=== PATIENT | female | born 1950 | race Caucasian/White ===

== ENCOUNTER → 2017-10-25 | Outpatient (CLI) | payer OTHER ==
[~2017-10-25] MED LIST: OMNIPAQUE 350 MG/ML, 100ML BOTTLE ONE
[2017-10-25 12:15] LABS: BASOPHILS # (AUTO) 0.01 x10^3/uL (0-0.1); BASOPHILS % (AUTO) 0 % (0-1); EOSINOPHILS # (AUTO) 0.09 x10^3/uL (0-0.4); EOSINOPHILS % (AUTO) 1 % (1-7); LYMPHOCYTES # (AUTO) 1.72 x10^3/uL (1-3.4); LYMPHOCYTES % (AUTO) 19 % (22-44); MD NO; MEAN CORPUSCULAR HEMOGLOBIN 31.2 pg (27.0-34.8); MEAN CORPUSCULAR HGB CONC 33.8 g/dL (32.4-35.8); MEAN CORPUSCULAR VOLUME 92.4 fL (80-100); MEAN PLATELET VOLUME 8.1 fL (7.4-10.4); MONOCYTES # (AUTO) 0.09 x10^3/uL (0.2-0.8); MONOCYTES % (AUTO) 1 % (2-9); NEUTROPHILS # (AUTO) 7.11 x10^3/uL (1.8-6.8); NEUTROPHILS % (AUTO) 79 % (42-75); PLATELET COUNT 275 x10^3/uL (130-400); RED BLOOD COUNT 4.37 x10^6/uL (3.82-5.3); RED CELL DISTRIBUTION WIDTH 12.7 % (9.6-15.2)
[2017-10-25 12:35] LABS: ALANINE AMINOTRANSFERASE 20 U/L (12-78); ALBUMIN 3.8 g/dL (3.4-5.0); ALKALINE PHOSPHATASE 53 U/L (45-117); ANION GAP 7 mmol/L (5-15); BILIRUBIN,TOTAL 0.5 mg/dL (0.2-1.0); CHLORIDE 101 mmol/L (98-107); CREATININE 0.53 mg/dL (0.55-1.02); TOTAL PROTEIN 7.9 g/dL (6.4-8.2)
== END ==
LOC: RAD 11:49
PROVIDERS: ATTEND Internal Medicine Gastroenterology
DX: C15.4 Malignant neoplasm of middle third of esophagus (principal); J43.2 Centrilobular emphysema; R13.19 Other dysphagia; K44.9 Diaphragmatic hernia without obstruction or gangrene; K22.2 Esophageal obstruction
CPT/HCPCS: 36415; 71260; 74177; 80053; 85025; Q9967

== ENCOUNTER → 2017-11-17 | Outpatient (CLI) | payer OTHER | END | disposition home or self-care (01) | LOC: ROC 10:10 | PROVIDERS: ATTEND Radiology Radiation Oncology | DX: C15.4 Malignant neoplasm of middle third of esophagus (principal); E78.00 Pure hypercholesterolemia, unspecified; I10 Essential (primary) hypertension; J44.9 Chronic obstructive pulmonary disease, unspecified; Z87.891 Personal history of nicotine dependence | CPT/HCPCS: 99214; G0463 ==

== ENCOUNTER → 2017-11-27 | Outpatient (CLI) | payer OTHER ==
[~2017-11-27] MED LIST changes: +ALBU18HF INH; +LOSA50TA6 PO; -OMNIPAQUE 350 MG/ML, 100ML BOTTLE ONE; +UMEC1DIS INH
== END | disposition home or self-care (01) ==
LOC: PETCFH 08:27
PROVIDERS: ATTEND Internal Medicine Hematology & Oncology
DX: C15.4 Malignant neoplasm of middle third of esophagus (principal)
CPT/HCPCS: 78815; A9552

== ENCOUNTER 2017-11-30 11:10 | Day surgery (SDC) | payer OTHER ==
[~2017-11-30] VITALS: Ht 162.6 cm; Wt 46.8 kg
[2017-11-30] MEDS ORDERED: LACTATED RINGERS 1,000 ML IV SCH ×2 (11:44→13:24)
[2017-11-30] MEDS ORDERED: PROPOFOL 10 MG/ML, 20ML ONE ×2 (11:55→12:49)
[2017-11-30] MEDS ORDERED: CHLORHEXIDINE 15 ML BOTTLE ONE (12:28)
[2017-11-30 12:35] LABS: ALBUMIN 3.8 g/dL (3.4-5.0); ANION GAP 9 mmol/L (5-15); CALCIUM 9.3 mg/dL (8.5-10.1); CHLORIDE 100 mmol/L (98-107)
[2017-11-30 12:38] LABS: ALANINE AMINOTRANSFERASE 15 U/L (12-78); ALKALINE PHOSPHATASE 41 U/L (45-117); BILIRUBIN,TOTAL 0.5 mg/dL (0.2-1.0); TOTAL PROTEIN 7.7 g/dL (6.4-8.2)
== END 2017-11-30 14:15 ==
LOC: OUT 11:10
PROVIDERS: ATTEND Internal Medicine Gastroenterology
DX: C15.9 Malignant neoplasm of esophagus, unspecified (principal); J44.9 Chronic obstructive pulmonary disease, unspecified; E03.9 Hypothyroidism, unspecified; I10 Essential (primary) hypertension; Z88.1 Allergy status to other antibiotic agents
CPT/HCPCS: 36415; 43202; 43231; 80053; 88305; 93005; J2704; J7120

== ENCOUNTER → 2018-02-07 | Outpatient (CLI) | payer OTHER ==
[~2018-02-07] MED LIST changes: +ACET650S21 JT; +DOCU50LI24 JT
== END | disposition home or self-care (01) ==
LOC: ROC 10:29
PROVIDERS: ATTEND Radiology Radiation Oncology
DX: C15.4 Malignant neoplasm of middle third of esophagus (principal)
CPT/HCPCS: 99212; G0463

== ENCOUNTER 2018-03-22 10:51 | Day surgery (SDC) | payer OTHER ==
[~2018-03-22] VITALS: Ht 162.6 cm; Wt 47.0 kg
[2018-03-22] MEDS ORDERED: LACTATED RINGERS 1,000 ML IV SCH (12:01)
[2018-03-22] MEDS ORDERED: PROPOFOL 10 MG/ML, 20ML ONE (12:23)
[2018-03-22 12:25] VITALS: BP 126/79
[2018-03-22] MEDS ORDERED: DIAZEPAM 5 MG/ML, 2ML IVPush PRN (12:30)
[2018-03-22] MEDS ORDERED: MORPHINE SULFATE 4 MG/ML, 1ML IVPush PRN (12:30)
[2018-03-22] MEDS ORDERED: LABETALOL 5MG/ML, 20ML IV PRN (12:30)
[2018-03-22] MEDS ORDERED: FENTANYL PF 100 MCG/2ML IV PRN (12:30)
[2018-03-22] MEDS ORDERED: PROMETHAZINE 25 MG/ML, 1ML IV PRN (12:30)
[2018-03-22] MEDS ORDERED: SCOPOLAMINE PATCH, 1.5MG PATCH.TD72 TD PRN (12:30)
[2018-03-22] MEDS ORDERED: hydrALAzine 20 MG/ML, 1ML IV PRN (12:30)
[2018-03-22] MEDS ORDERED: MIDAZOLAM 1 MG/ML, 2ML IV PRN (12:30)
[2018-03-22] MEDS ORDERED: MEPERIDINE/PF 25MG/0.5ML IVPush PRN (12:30)
[2018-03-22] MEDS ORDERED: KETOROLAC 30 MG/1 ML IV PRN (12:30)
[2018-03-22] MEDS ORDERED: EPHEDRINE 50 MG/ML, 1ML IM PRN (12:30)
[2018-03-22] MEDS ORDERED: ACETAMINOPHEN 325 MG TABLET PO PRN (12:30)
[2018-03-22] MEDS ORDERED: ALBUTEROL/IPRATROPIUM 2.5MG/0.5MG, 3 ML NPPB PRN (12:30)
[2018-03-22] MEDS ORDERED: OXYcodone 5 MG/5 ML ORAL.SOL UDC PO PRN (12:30)
[2018-03-22] MEDS ORDERED: HYDROmorphone 1 MG/ML, 1ML IV PRN (12:30)
[2018-03-22] MEDS ORDERED: ONDANSETRON ODT 8 MG PO PRN (12:30)
== END 2018-03-22 14:05 ==
LOC: OUT 10:51
PROVIDERS: ATTEND Internal Medicine Gastroenterology
DX: C15.4 Malignant neoplasm of middle third of esophagus (principal); K22.2 Esophageal obstruction; Z88.1 Allergy status to other antibiotic agents; J44.9 Chronic obstructive pulmonary disease, unspecified; E78.00 Pure hypercholesterolemia, unspecified; I10 Essential (primary) hypertension; Z87.39 Personal history of other diseases of the musculoskeletal system and connective tissue; Z98.890 Other specified postprocedural states
CPT/HCPCS: 43237; 43239; 43249; 88305; 88312; 93005; C1725; J2704

== ENCOUNTER 2018-04-04 09:52 | Day surgery (SDC) | payer OTHER ==
[~2018-04-04] VITALS: Ht 162.6 cm; Wt 47.3 kg
[2018-04-04] MEDS ORDERED: MORPHINE PO (10:26)
[2018-04-04 10:31] VITALS: BP 133/71
[2018-04-04] MEDS ORDERED: LACTATED RINGERS 1,000 ML IV SCH (11:00)
[2018-04-04] MEDS ORDERED: MIDAZOLAM 1 MG/ML, 2ML ONE (12:01)
[2018-04-04] MEDS ORDERED: FENTANYL PF 100 MCG/2ML ONE (12:01)
[2018-04-04] MEDS ORDERED: ONDANSETRON 2MG/ML, 2ML ONE ×2 (12:05→14:11)
[2018-04-04] MEDS ORDERED: PROPOFOL 10 MG/ML, 20ML ONE (12:05)
[2018-04-04] MEDS ORDERED: DEXAMETHASONE 4 MG/ML, 1ML ONE (12:05)
[2018-04-04] MEDS ORDERED: SUCCINYLCHOLINE 20 MG/ML, 10ML ONE (12:05)
[2018-04-04] MEDS ORDERED: OMNIPAQUE 350 MG/ML, 50 ML BOTTLE ONE (12:40)
[2018-04-04] MEDS ORDERED: LABETALOL 5MG/ML, 20ML ONE (12:53)
[2018-04-04] MEDS ORDERED: hydrALAzine 20 MG/ML, 1ML IV PRN (13:00)
[2018-04-04] MEDS ORDERED: LABETALOL 5MG/ML, 20ML IV PRN (13:00)
[2018-04-04] MEDS ORDERED: ACETAMINOPHEN 325 MG TABLET PO PRN (13:00)
[2018-04-04] MEDS ORDERED: ONDANSETRON ODT 8 MG PO PRN (13:00)
[2018-04-04] MEDS ORDERED: EPHEDRINE 50 MG/ML, 1ML IVPush PRN (13:00)
[2018-04-04] MEDS ORDERED: MORPHINE SULFATE 4 MG/ML, 1ML IVPush PRN (13:00)
[2018-04-04] MEDS ORDERED: HYDROcodone/APAP 7.5-325MG/15ML UDC PO PRN (13:00)
[2018-04-04] MEDS ORDERED: MIDAZOLAM 1 MG/ML, 2ML IV PRN (13:00)
[2018-04-04] MEDS ORDERED: KETOROLAC 30 MG/1 ML IV PRN (13:00)
[2018-04-04] MEDS ORDERED: PROMETHAZINE 25 MG/ML, 1ML IV PRN (13:00)
[2018-04-04] MEDS ORDERED: ALBUTEROL/IPRATROPIUM 2.5MG/0.5MG, 3 ML NPPB PRN (13:00)
[2018-04-04] MEDS ORDERED: OXYcodone 5 MG/5 ML ORAL.SOL UDC PO PRN (13:00)
[2018-04-04] MEDS ORDERED: FENTANYL PF 100 MCG/2ML IV PRN (13:00)
[2018-04-04] MEDS ORDERED: ONDANSETRON 2MG/ML, 2ML IVPush ONE (14:30)
== END 2018-04-04 15:45 ==
LOC: OUT 09:52
PROVIDERS: ATTEND Internal Medicine Gastroenterology
DX: K22.2 Esophageal obstruction (principal); J44.9 Chronic obstructive pulmonary disease, unspecified; C15.4 Malignant neoplasm of middle third of esophagus; E78.00 Pure hypercholesterolemia, unspecified; I10 Essential (primary) hypertension; Z87.891 Personal history of nicotine dependence; Z88.1 Allergy status to other antibiotic agents; Z98.890 Other specified postprocedural states
CPT/HCPCS: 43266; 71045; 76000; C1769; C1876; J0330; J1100; J2250; J2405; J2704; J3010; J7120; Q9967

== ENCOUNTER → 2018-04-18 | Outpatient (CLI) | payer OTHER ==
[~2018-04-18] MED LIST changes: +MORPHINE PO
== END | disposition home or self-care (01) ==
LOC: PETCFH 09:53
PROVIDERS: ATTEND Internal Medicine Hematology & Oncology
DX: C15.4 Malignant neoplasm of middle third of esophagus (principal); J90 Pleural effusion, not elsewhere classified; J98.11 Atelectasis
CPT/HCPCS: 78815; A9552

== ENCOUNTER → 2018-04-27 | Outpatient (CLI) | payer OTHER ==
[~2018-04-27] MED LIST changes: +OMNIPAQUE 350 MG/ML, 100ML BOTTLE ONE
[2018-04-27 13:30] LABS: CREATININE 0.38 mg/dL (0.55-1.02)
== END | disposition home or self-care (01) ==
LOC: RAD 12:06
PROVIDERS: ATTEND Internal Medicine Hematology & Oncology
DX: C15.4 Malignant neoplasm of middle third of esophagus (principal); J90 Pleural effusion, not elsewhere classified; J98.11 Atelectasis
CPT/HCPCS: 36415; 71275; 82565; J1642; Q9967

== ENCOUNTER → 2018-05-11 | Outpatient (CLI) | payer OTHER ==
[~2018-05-11] MED LIST changes: +LIDOCAINE-MPF 2% ,5ML ONE; -OMNIPAQUE 350 MG/ML, 100ML BOTTLE ONE
== END | disposition home or self-care (01) ==
LOC: RAD 09:17
PROVIDERS: ATTEND Internal Medicine Critical Care Medicine
DX: J90 Pleural effusion, not elsewhere classified (principal); Z85.01 Personal history of malignant neoplasm of esophagus; I10 Essential (primary) hypertension; E78.00 Pure hypercholesterolemia, unspecified; E03.9 Hypothyroidism, unspecified; J43.2 Centrilobular emphysema
CPT/HCPCS: 32555; 83615; 84157; 88112; 88305; 89051; J3490; 88341; 88342; G0461

== ENCOUNTER → 2018-05-16 | Outpatient (CLI) | payer OTHER ==
[~2018-05-16] MED LIST changes: -LIDOCAINE-MPF 2% ,5ML ONE
== END | disposition home or self-care (01) ==
LOC: RAD 12:32
PROVIDERS: ATTEND Internal Medicine Gastroenterology
DX: C15.9 Malignant neoplasm of esophagus, unspecified (principal); R13.19 Other dysphagia
CPT/HCPCS: 74220

== ENCOUNTER 2018-06-07 07:18 | Day surgery (SDC) | payer OTHER ==
[~2018-06-07] VITALS: Ht 162.6 cm; Wt 49.0 kg
[2018-06-07 08:10] VITALS: BP 156/79
[2018-06-07 08:51] LABS: BASOPHILS # (AUTO) 0.02 x10^3/uL (0-0.1); BASOPHILS % (AUTO) 0 % (0-1); EOSINOPHILS # (AUTO) 0.06 x10^3/uL (0-0.4); EOSINOPHILS % (AUTO) 1 % (1-7); LYMPHOCYTES # (AUTO) 0.63 x10^3/uL (1-3.4); LYMPHOCYTES % (AUTO) 7 % (22-44); MD NO; MEAN CORPUSCULAR HEMOGLOBIN 26.6 pg (27.0-34.8); MEAN CORPUSCULAR HGB CONC 32.8 g/dL (32.4-35.8); MEAN CORPUSCULAR VOLUME 81.1 fL (80-100); MEAN PLATELET VOLUME 7.4 fL (7.4-10.4); MONOCYTES # (AUTO) 0.84 x10^3/uL (0.2-0.8); MONOCYTES % (AUTO) 9 % (2-9); NEUTROPHILS # (AUTO) 7.88 x10^3/uL (1.8-6.8); NEUTROPHILS % (AUTO) 84 % (42-75); PLATELET COUNT 359 x10^3/uL (130-400); RED BLOOD COUNT 4.04 x10^6/uL (3.82-5.3); RED CELL DISTRIBUTION WIDTH 15.7 % (9.6-15.2)
[2018-06-07] MEDS ORDERED: LIDOCAINE-MPF 2% ,5ML ONE (08:55)
[2018-06-07] MEDS ORDERED: ONDANSETRON 2MG/ML, 2ML ONE (08:55)
[2018-06-07] MEDS ORDERED: SUCCINYLCHOLINE 20 MG/ML, 10ML ONE (08:55)
[2018-06-07] MEDS ORDERED: ROCURONIUM 10 MG/ML,10ML ONE (08:55)
[2018-06-07] MEDS ORDERED: ALBUTEROL SULFATE 200 PUFFS/8.5 GR INH ONE (08:55)
[2018-06-07] MEDS ORDERED: PROPOFOL 10 MG/ML, 20ML ONE (08:55)
[2018-06-07 09:01] LABS: ANION GAP 6 mmol/L (5-15); CALCIUM 8.8 mg/dL (8.5-10.1); CHLORIDE 90 mmol/L (98-107); CREATININE 0.43 mg/dL (0.55-1.02)
[2018-06-07] MEDS ORDERED: LORazepam 2 MG/ML, 1ML IVPush PRN (09:30)
[2018-06-07] MEDS ORDERED: ONDANSETRON ODT 8 MG PO PRN (09:30)
[2018-06-07] MEDS ORDERED: MEPERIDINE/PF 25MG/0.5ML IVPush PRN (09:30)
[2018-06-07] MEDS ORDERED: MIDAZOLAM 1 MG/ML, 2ML IV PRN (09:30)
[2018-06-07] MEDS ORDERED: ONDANSETRON 2MG/ML, 2ML IV PRN (09:30)
[2018-06-07] MEDS ORDERED: OXYcodone 5 MG/5 ML ORAL.SOL UDC PO PRN (09:30)
[2018-06-07] MEDS ORDERED: ALBUTEROL SULFATE 2.5 MG/3 ML NPPB PRN (09:30)
[2018-06-07] MEDS ORDERED: FENTANYL PF 100 MCG/2ML IV PRN (09:30)
[2018-06-07] MEDS ORDERED: PROMETHAZINE 12.5 MG SUPP PR PRN (09:30)
[2018-06-07] MEDS ORDERED: PROMETHAZINE 25 MG/ML, 1ML IV PRN (09:30)
[2018-06-07] MEDS ORDERED: LABETALOL 5MG/ML, 20ML IV PRN (09:30)
[2018-06-07] MEDS ORDERED: hydrALAzine 20 MG/ML, 1ML IV PRN (09:30)
[2018-06-07] MEDS ORDERED: HYDROmorphone 1 MG/ML, 1ML IV PRN (09:30)
[2018-06-07] MEDS ORDERED: ACETAMINOPHEN 325 MG TABLET PO PRN (09:30)
[2018-06-07] MEDS ORDERED: OXYcodone 5 MG/5 ML ORAL.SOL UDC ONE (10:00)
== END 2018-06-07 11:50 | disposition home or self-care (01) ==
LOC: OUT 07:18
PROVIDERS: ATTEND Internal Medicine Gastroenterology
DX: C15.9 Malignant neoplasm of esophagus, unspecified (principal); T18.198A Other foreign object in esophagus causing other injury, initial encounter; J44.9 Chronic obstructive pulmonary disease, unspecified; I10 Essential (primary) hypertension; E03.9 Hypothyroidism, unspecified; E78.00 Pure hypercholesterolemia, unspecified; J98.11 Atelectasis; X58.XXXA Exposure to other specified factors, initial encounter; Y93.89 Activity, other specified; Y92.89 Other specified places as the place of occurrence of the external cause; Y99.8 Other external cause status; Z88.1 Allergy status to other antibiotic agents; Z87.891 Personal history of nicotine dependence; Z98.890 Other specified postprocedural states; Z79.899 Other long term (current) drug therapy
CPT/HCPCS: 36415; 43239; 43247; 80048; 85025; 88305; 93005; J0330; J2405; J2704; J3490

== ENCOUNTER → 2018-06-12 | Outpatient (CLI) | payer OTHER | END | disposition home or self-care (01) | LOC: CFH 11:40 | PROVIDERS: ATTEND Nurse Practitioner Family | DX: J90 Pleural effusion, not elsewhere classified (principal); J96.11 Chronic respiratory failure with hypoxia; J44.9 Chronic obstructive pulmonary disease, unspecified; Z87.891 Personal history of nicotine dependence | CPT/HCPCS: 71046 ==

== ENCOUNTER 2018-07-17 11:58 | Inpatient (IN) | payer OTHER ==
[~2018-07-17] VITALS: Ht 162.6 cm; Wt 64.0 kg
[~2018-07-17 11:58] MED LIST changes: -LOSA50TA6 PO; +LOSA50TA7 PO
[2018-07-17] MEDS ORDERED: SODIUM CHLORIDE FLUSH 10ML SYR IVF ONE ×2 (12:30→13:00)
[2018-07-17] MEDS ORDERED: SODIUM CHLORIDE 0.9% 1,000 ML IV ONE (12:36)
[2018-07-17 12:54] LABS: BASOPHILS # (AUTO) 0.03 x10^3/uL (0-0.1); BASOPHILS % (AUTO) 0 % (0-1); EOSINOPHILS # (AUTO) 0.03 x10^3/uL (0-0.4); EOSINOPHILS % (AUTO) 0 % (1-7); LYMPHOCYTES # (AUTO) 0.51 x10^3/uL (1-3.4); LYMPHOCYTES % (AUTO) 5 % (22-44); MD NO; MEAN CORPUSCULAR HEMOGLOBIN 27.3 pg (27.0-34.8); MEAN CORPUSCULAR HGB CONC 32.9 g/dL (32.4-35.8); MEAN CORPUSCULAR VOLUME 82.9 fL (80-100); MEAN PLATELET VOLUME 7.9 fL (7.4-10.4); MONOCYTES # (AUTO) 0.82 x10^3/uL (0.2-0.8); MONOCYTES % (AUTO) 8 % (2-9); NEUTROPHILS # (AUTO) 9.37 x10^3/uL (1.8-6.8); NEUTROPHILS % (AUTO) 87 % (42-75); PLATELET COUNT 285 x10^3/uL (130-400); RED BLOOD COUNT 3.74 x10^6/uL (3.82-5.3); RED CELL DISTRIBUTION WIDTH 16.8 % (9.6-15.2)
[2018-07-17] MEDS ORDERED: SODIUM CHLORIDE 0.9% 1,000ML IVBOLUS ONE (13:00)
[2018-07-17 13:05] LABS: ALBUMIN 2.8 g/dL (3.4-5.0); ANION GAP 8 mmol/L (5-15); CALCIUM 8.7 mg/dL (8.5-10.1); CHLORIDE 88 mmol/L (98-107)
[2018-07-17 13:13] LABS: ALANINE AMINOTRANSFERASE 25 U/L (12-78); ALKALINE PHOSPHATASE 65 U/L (45-117); BILIRUBIN,TOTAL 0.3 mg/dL (0.2-1.0); CREATININE 0.45 mg/dL (0.55-1.02); TOTAL PROTEIN 8.4 g/dL (6.4-8.2); TROPONIN I < 0.015 ng/mL (0.000-0.045)
[2018-07-17 13:18] LABS: THYROID STIMULATING HORMONE 0.783 mIU/L (0.358-3.740)
[2018-07-17 14:13] LABS: MICROSCOPIC INDICATED
[2018-07-17 14:37] LABS: CULTURE INDICATED? NO
[2018-07-17 15:28] VITALS: BP 172/72
[2018-07-17] MEDS ORDERED: LABETALOL 5MG/ML, 20ML IVPush PRN (15:30)
[2018-07-17] MEDS ORDERED: hydrALAzine 20 MG/ML, 1ML IVPush PRN (15:30)
[2018-07-17] MEDS ORDERED: ONDANSETRON 2MG/ML, 2ML IVPush PRN (15:30)
[2018-07-17 17:41] VITALS: BP 148/81
[2018-07-17] MEDS: SODIUM CHLORIDE 0.9% 1,000 ML IV SCH (18:04)
[2018-07-17] MEDS: methylPREDNISolone SOD SUCC 40 MG/ML IVPush SCH (18:05)
[2018-07-17] MEDS: HEPARIN 5,000 UNITS/ML, 1ML SQ SCH (18:06)
[2018-07-17] MEDS: morphine SULFATE 10 MG/ML, 1ML IVPush PRN (18:45)
[2018-07-17 19:46] LABS: OSMOLALITY,URINE 565 mOsm/kg (500-850)
[2018-07-17 19:48] LABS: CHLORIDE,URINE RANDOM 117 mmol/L; POTASSIUM,URINE RANDOM 50 mmol/L; SODIUM,URINE RANDOM 105 mmol/L
[2018-07-17 20:29] VITALS: BP 128/67
[2018-07-17] MEDS: FAMOTIDINE 20 MG/2 ML IVPush SCH (21:03)
[2018-07-18] MEDS: methylPREDNISolone SOD SUCC 40 MG/ML IVPush SCH ×4 (00:17→16:33)
[2018-07-18] MEDS: morphine SULFATE 10 MG/ML, 1ML IVPush PRN ×7 (00:17→22:52)
[2018-07-18 01:13] VITALS: BP 160/75
[2018-07-18] MEDS: HEPARIN 5,000 UNITS/ML, 1ML SQ SCH ×3 (03:35→16:33)
[2018-07-18] MEDS: SODIUM CHLORIDE 0.9% 1,000 ML IV SCH ×2 (03:35→13:50)
[2018-07-18 06:17] LABS: ANION GAP 10 mmol/L (5-15); BASOPHILS % (AUTO) 0 % (0-1); CALCIUM 8.7 mg/dL (8.5-10.1); CHLORIDE 93 mmol/L (98-107); EOSINOPHILS % (AUTO) 0 % (1-7); LYMPHOCYTES # (AUTO) 0.31 x10^3/uL (1-3.4); LYMPHOCYTES % (AUTO) 6 % (22-44); MD NO; MEAN CORPUSCULAR HEMOGLOBIN 27.1 pg (27.0-34.8); MEAN CORPUSCULAR HGB CONC 33.2 g/dL (32.4-35.8); MEAN CORPUSCULAR VOLUME 81.6 fL (80-100); MEAN PLATELET VOLUME 8.1 fL (7.4-10.4); MONOCYTES # (AUTO) 0.04 x10^3/uL (0.2-0.8); MONOCYTES % (AUTO) 1 % (2-9); NEUTROPHILS % (AUTO) 93 % (42-75); PLATELET COUNT 253 x10^3/uL (130-400); RED BLOOD COUNT 3.46 x10^6/uL (3.82-5.3); RED CELL DISTRIBUTION WIDTH 16.5 % (9.6-15.2)
[2018-07-18 06:18] LABS: CREATININE 0.44 mg/dL (0.55-1.02)
[2018-07-18 06:57] VITALS: BP 159/78
[2018-07-18] MEDS: FAMOTIDINE 20 MG/2 ML IVPush SCH ×2 (09:21→21:31)
[2018-07-18] MEDS ORDERED: MORPHINE SULFATE 4 MG/ML, 1ML ONE (12:29)
[2018-07-18 13:30] VITALS: BP 135/71
[2018-07-18] MEDS ORDERED: LIDOCAINE-MPF 2%, 2ML ONE (14:38)
[2018-07-18 15:45] LABS: INTERNATIONAL NORMALIZED RATIO 1.1 (0.93-1.1); PROTHROMBIN TIME 11.4 Seconds (9.6-11.5)
[2018-07-18 18:48] VITALS: BP 139/65
[2018-07-19] MEDS: methylPREDNISolone SOD SUCC 40 MG/ML IVPush SCH ×5 (00:26→23:19)
[2018-07-19] MEDS: SODIUM CHLORIDE 0.9% 1,000 ML IV SCH ×3 (00:26→20:17)
[2018-07-19 01:03] VITALS: BP 131/69
[2018-07-19] MEDS: morphine SULFATE 10 MG/ML, 1ML IVPush PRN ×7 (02:19→23:19)
[2018-07-19] MEDS: HEPARIN 5,000 UNITS/ML, 1ML SQ SCH ×3 (02:19→17:12)
[2018-07-19 05:30] LABS: ANION GAP 8 mmol/L (5-15); CALCIUM 8.3 mg/dL (8.5-10.1); CHLORIDE 94 mmol/L (98-107); CREATININE 0.38 mg/dL (0.55-1.02)
[2018-07-19 05:57] LABS: BASOPHILS % (AUTO) 0 % (0-1); EOSINOPHILS % (AUTO) 0 % (1-7); LYMPHOCYTES % (AUTO) 4 % (22-44); MD NO; MEAN CORPUSCULAR HGB CONC 34.1 g/dL (32.4-35.8); MEAN CORPUSCULAR VOLUME 82.1 fL (80-100); MEAN PLATELET VOLUME 8.6 fL (7.4-10.4); MONOCYTES % (AUTO) 3 % (2-9); NEUTROPHILS # (AUTO) 10.64 x10^3/uL (1.8-6.8); NEUTROPHILS % (AUTO) 94 % (42-75); PLATELET COUNT 270 x10^3/uL (130-400); RED CELL DISTRIBUTION WIDTH 16.5 % (9.6-15.2)
[2018-07-19 07:27] VITALS: BP 134/72
[2018-07-19] MEDS: FAMOTIDINE 20 MG/2 ML IVPush SCH ×2 (09:39→20:17)
[2018-07-19 12:53] VITALS: BP 148/74
[2018-07-19 18:45] VITALS: BP 152/69
[2018-07-20 01:50] VITALS: BP 148/80
[2018-07-20] MEDS: morphine SULFATE 10 MG/ML, 1ML IVPush PRN ×7 (02:18→22:03)
[2018-07-20] MEDS: HEPARIN 5,000 UNITS/ML, 1ML SQ SCH ×3 (02:18→18:16)
[2018-07-20] MEDS: methylPREDNISolone SOD SUCC 40 MG/ML IVPush SCH ×3 (05:28→18:17)
[2018-07-20 05:50] LABS: BASOPHILS % (AUTO) 0 % (0-1); EOSINOPHILS % (AUTO) 0 % (1-7); LYMPHOCYTES # (AUTO) 0.57 x10^3/uL (1-3.4); LYMPHOCYTES % (AUTO) 5 % (22-44); MD NO; MEAN CORPUSCULAR HEMOGLOBIN 27.5 pg (27.0-34.8); MEAN CORPUSCULAR HGB CONC 33.2 g/dL (32.4-35.8); MEAN CORPUSCULAR VOLUME 82.7 fL (80-100); MEAN PLATELET VOLUME 8.1 fL (7.4-10.4); MONOCYTES % (AUTO) 5 % (2-9); NEUTROPHILS % (AUTO) 90 % (42-75); PLATELET COUNT 325 x10^3/uL (130-400); RED BLOOD COUNT 3.66 x10^6/uL (3.82-5.3); RED CELL DISTRIBUTION WIDTH 16.3 % (9.6-15.2)
[2018-07-20 05:59] LABS: ANION GAP 8 mmol/L (5-15); CALCIUM 8.5 mg/dL (8.5-10.1); CHLORIDE 89 mmol/L (98-107)
[2018-07-20 06:01] LABS: CREATININE 0.45 mg/dL (0.55-1.02)
[2018-07-20 07:55] VITALS: BP 132/69
[2018-07-20] MEDS: FAMOTIDINE 20 MG/2 ML IVPush SCH ×2 (09:12→20:04)
[2018-07-20] MEDS: SODIUM CHLORIDE 0.9% 1,000 ML IV SCH (09:17)
[2018-07-20] MEDS ORDERED: NS + 40MEQ KCL 1,000 ML IV ONE (12:30)
[2018-07-20 13:20] VITALS: BP 148/76
[2018-07-20] MEDS ORDERED: POTASSIUM CHLORIDE 40 MEQ in SODIUM CHLORIDE 0.9% 500 ML IV ONE ×2 (13:30→19:30)
[2018-07-20] MEDS ORDERED: MAGNESIUM SULFATE PMX 2GM/50ML 50 ML IV ONE (19:30)
[2018-07-20] MEDS: ALBUTEROL SULFATE 2.5 MG/3 ML NPPB PRN (19:33)
[2018-07-20 21:15] VITALS: BP 150/67
[2018-07-21] MEDS: methylPREDNISolone SOD SUCC 40 MG/ML IVPush SCH ×2 (01:49→05:06)
[2018-07-21] MEDS: morphine SULFATE 10 MG/ML, 1ML IVPush PRN ×4 (01:49→11:55)
[2018-07-21] MEDS: HEPARIN 5,000 UNITS/ML, 1ML SQ SCH ×3 (01:49→17:25)
[2018-07-21 02:30] VITALS: BP 163/78
[2018-07-21 05:00] LABS: BASOPHILS # (AUTO) 0.02 x10^3/uL (0-0.1); BASOPHILS % (AUTO) 0 % (0-1); EOSINOPHILS % (AUTO) 0 % (1-7); LYMPHOCYTES # (AUTO) 0.35 x10^3/uL (1-3.4); LYMPHOCYTES % (AUTO) 3 % (22-44); MD NO; MEAN CORPUSCULAR HEMOGLOBIN 27.4 pg (27.0-34.8); MEAN CORPUSCULAR HGB CONC 33.5 g/dL (32.4-35.8); MEAN CORPUSCULAR VOLUME 81.9 fL (80-100); MEAN PLATELET VOLUME 8.1 fL (7.4-10.4); MONOCYTES # (AUTO) 0.46 x10^3/uL (0.2-0.8); MONOCYTES % (AUTO) 4 % (2-9); NEUTROPHILS # (AUTO) 10.53 x10^3/uL (1.8-6.8); NEUTROPHILS % (AUTO) 93 % (42-75); PLATELET COUNT 347 x10^3/uL (130-400); RED BLOOD COUNT 3.71 x10^6/uL (3.82-5.3); RED CELL DISTRIBUTION WIDTH 16.5 % (9.6-15.2)
[2018-07-21] MEDS: SODIUM CHLORIDE 0.9% 1,000 ML IV SCH (05:06)
[2018-07-21 05:12] LABS: ACETONE, SERUM Trace (10mg/dL) mg/dL (Negative); ANION GAP 9 mmol/L (5-15); CALCIUM 8.2 mg/dL (8.5-10.1); CHLORIDE 89 mmol/L (98-107); CREATININE 0.37 mg/dL (0.55-1.02)
[2018-07-21 07:30] VITALS: BP 164/65
[2018-07-21] MEDS ORDERED: POTASSIUM CHLORIDE 40 MEQ in SODIUM CHLORIDE 0.9% 500 ML IV ONE (07:30)
[2018-07-21] MEDS: SODIUM CHLORIDE 1 GM TABLET PO SCH (08:12)
[2018-07-21] MEDS: FAMOTIDINE 20 MG/2 ML IVPush SCH ×2 (08:12→20:35)
[2018-07-21] MEDS ORDERED: POTASSIUM CHLORIDE 20 MEQ PACKET PO SCH (12:00)
[2018-07-21 13:25] VITALS: BP 161/77
[2018-07-21] MEDS: ALBUTEROL SULFATE 2.5 MG/3 ML NPPB PRN (14:20)
[2018-07-21] MEDS ORDERED: IPRATROPIUM 0.5 MG/2.5 ML INHA HHN SCH ×2 (15:00→16:00)
[2018-07-21] MEDS: morphine SULFATE ORAL.CONC 20 MG/ML PO PRN ×2 (15:08→20:36)
[2018-07-21] MEDS: MORPHINE SULFATE 4 MG/ML, 1ML IVPush PRN ×2 (17:39→22:37)
[2018-07-21 18:33] VITALS: BP 160/66
[2018-07-21] MEDS: ALBUTEROL/IPRATROPIUM 2.5MG/0.5MG, 3 ML NPPB SCH (19:12)
[2018-07-21] MEDS: LORazepam 2 MG/ML, 1ML IVPush PRN (20:36)
[2018-07-22] MEDS: LORazepam 2 MG/ML, 1ML IVPush PRN (00:49)
[2018-07-22] MEDS: morphine SULFATE ORAL.CONC 20 MG/ML PO PRN ×4 (00:50→20:19)
[2018-07-22] MEDS: HEPARIN 5,000 UNITS/ML, 1ML SQ SCH ×3 (02:40→18:02)
[2018-07-22] MEDS: MORPHINE SULFATE 4 MG/ML, 1ML IVPush PRN ×3 (02:40→18:02)
[2018-07-22 03:00] VITALS: BP 128/68
[2018-07-22 05:15] VITALS: BP 139/77
[2018-07-22 06:06] LABS: MEAN CORPUSCULAR HEMOGLOBIN 27.3 pg (27.0-34.8); MEAN CORPUSCULAR HGB CONC 33.2 g/dL (32.4-35.8); MEAN CORPUSCULAR VOLUME 82.4 fL (80-100); MEAN PLATELET VOLUME 7.9 fL (7.4-10.4); PLATELET COUNT 365 x10^3/uL (130-400); RED BLOOD COUNT 3.91 x10^6/uL (3.82-5.3)
[2018-07-22 06:09] LABS: ANION GAP 8 mmol/L (5-15); CHLORIDE 91 mmol/L (98-107); CREATININE 0.33 mg/dL (0.55-1.02)
[2018-07-22 06:30] LABS: BASOPHILS % (AUTO) 0 % (0-1); EOSINOPHILS # (AUTO) 0.34 x10^3/uL (0-0.4); EOSINOPHILS % (AUTO) 2 % (1-7); LYMPHOCYTES # (AUTO) 0.87 x10^3/uL (1-3.4); LYMPHOCYTES % (AUTO) 6 % (22-44); MD SCAN; MONOCYTES # (AUTO) 1.64 x10^3/uL (0.2-0.8); MONOCYTES % (AUTO) 10 % (2-9); NEUTROPHILS # (AUTO) 13.02 x10^3/uL (1.8-6.8); NEUTROPHILS % (AUTO) 82 % (42-75)
[2018-07-22 07:30] VITALS: BP 129/69
[2018-07-22] MEDS ORDERED: SODIUM CHLORIDE 0.9% 1,000ML IVBOLUS ONE (07:30)
[2018-07-22] MEDS: ALBUTEROL/IPRATROPIUM 2.5MG/0.5MG, 3 ML NPPB SCH ×3 (07:45→19:43)
[2018-07-22] MEDS ORDERED: prednisOLONE 15 MG/5 ML ORAL SOLN PO SCH (08:00)
[2018-07-22] MEDS: POTASSIUM CHLORIDE 20 MEQ PACKET PO SCH ×2 (09:46→20:20)
[2018-07-22] MEDS: SODIUM CHLORIDE 1 GM TABLET PO SCH (09:49)
[2018-07-22] MEDS: FAMOTIDINE 20 MG/2 ML IVPush SCH ×2 (09:55→20:20)
[2018-07-22 12:37] VITALS: BP 119/68
[2018-07-22 20:08] VITALS: BP 154/72
[2018-07-23] MEDS: HEPARIN 5,000 UNITS/ML, 1ML SQ SCH ×2 (00:51→09:54)
[2018-07-23] MEDS: MORPHINE SULFATE 4 MG/ML, 1ML IVPush PRN ×2 (00:51→09:57)
[2018-07-23 02:09] VITALS: BP 142/70
[2018-07-23 05:09] LABS: BASOPHILS % (AUTO) 0 % (0-1); EOSINOPHILS # (AUTO) 0.29 x10^3/uL (0-0.4); EOSINOPHILS % (AUTO) 2 % (1-7); LYMPHOCYTES # (AUTO) 0.92 x10^3/uL (1-3.4); LYMPHOCYTES % (AUTO) 7 % (22-44); MD NO; MEAN CORPUSCULAR HEMOGLOBIN 27.8 pg (27.0-34.8); MEAN CORPUSCULAR HGB CONC 33.5 g/dL (32.4-35.8); MEAN PLATELET VOLUME 7.9 fL (7.4-10.4); MONOCYTES % (AUTO) 9 % (2-9); NEUTROPHILS # (AUTO) 10.65 x10^3/uL (1.8-6.8); NEUTROPHILS % (AUTO) 82 % (42-75); PLATELET COUNT 346 x10^3/uL (130-400); RED BLOOD COUNT 3.68 x10^6/uL (3.82-5.3); RED CELL DISTRIBUTION WIDTH 17.3 % (9.6-15.2)
[2018-07-23 05:21] LABS: ANION GAP 6 mmol/L (5-15); CALCIUM 8.1 mg/dL (8.5-10.1); CHLORIDE 91 mmol/L (98-107); CREATININE 0.28 mg/dL (0.55-1.02)
[2018-07-23] MEDS ORDERED: MAGNESIUM SULFATE 1 GM/2 ML IVPush SCH (06:30)
[2018-07-23] MEDS ORDERED: MAGNESIUM SULFATE 1 GM in SODIUM CHLORIDE 0.9% 50 ML IV ONE (07:00)
[2018-07-23 07:02] VITALS: BP 139/69
[2018-07-23] MEDS: morphine SULFATE ORAL.CONC 20 MG/ML PO PRN ×2 (07:15→12:43)
[2018-07-23] MEDS ORDERED: prednisOLONE 15 MG/5 ML ORAL SOLN PO SCH (08:00)
[2018-07-23] MEDS: FAMOTIDINE 20 MG/2 ML IVPush SCH (08:17)
[2018-07-23] MEDS: SODIUM CHLORIDE 1 GM TABLET PO SCH (08:27)
[2018-07-23] MEDS: ALBUTEROL/IPRATROPIUM 2.5MG/0.5MG, 3 ML NPPB SCH (09:00)
[2018-07-23] MEDS ORDERED: POTASSIUM CHLORIDE 20 MEQ PACKET PO SCH (09:00)
[2018-07-23] MEDS ORDERED: POTA20PA25 PO (11:01)
[2018-07-23] MEDS ORDERED: PRED15SO3 PO (11:01)
[2018-07-23 12:45] VITALS: BP 136/69
== END 2018-07-23 14:00 | disposition home or self-care (01) | DRG 186 ==
LOC: ED 14:09 → EDIP 14:10 → ED 14:12 → 3NW 15:05 → 4EST 17:16 → DCLOUNGE 07-23 13:50
PROVIDERS: ADMIT Internal Medicine; ATTEND Internal Medicine
PROC: 0W9B3ZZ Drainage of Left Pleural Cavity, Percutaneous Approach (ICD-10-PCS; principal; 2018-07-18)
PROC: 0W993ZZ Drainage of Right Pleural Cavity, Percutaneous Approach (ICD-10-PCS; 2018-07-18)
PROC: BB4BZZZ Ultrasonography of Pleura (ICD-10-PCS; 2018-07-18)
PROC: BB4BZZZ Ultrasonography of Pleura (ICD-10-PCS; 2018-07-18)
DX: J90 Pleural effusion, not elsewhere classified (principal); E43 Unspecified severe protein-calorie malnutrition; J44.1 Chronic obstructive pulmonary disease with (acute) exacerbation; E87.1 Hypo-osmolality and hyponatremia; C15.9 Malignant neoplasm of esophagus, unspecified; J96.11 Chronic respiratory failure with hypoxia; F11.20 Opioid dependence, uncomplicated; J98.11 Atelectasis; R00.0 Tachycardia, unspecified; D72.829 Elevated white blood cell count, unspecified; E87.6 Hypokalemia; F12.90 Cannabis use, unspecified, uncomplicated; G89.29 Other chronic pain; H35.30 Unspecified macular degeneration; I10 Essential (primary) hypertension; R13.14 Dysphagia, pharyngoesophageal phase; Z87.891 Personal history of nicotine dependence; Z92.21 Personal history of antineoplastic chemotherapy; Z92.3 Personal history of irradiation; Z93.4 Other artificial openings of gastrointestinal tract status; Z99.81 Dependence on supplemental oxygen; Z90.89 Acquired absence of other organs; Z88.2 Allergy status to sulfonamides; Z68.24 Body mass index [BMI] 24.0-24.9, adult
CPT/HCPCS: 32555; 36415; 71045; 71275; 80048; 80053; 81001; 82010; 82042; 82150; 82436; 82962; 83615; 83735; 83880; 83930; 83935; 84100; 84132; 84133; 84157; 84300; 84436; 84439; 84443; 84484; 85025; 85610; 87070; 87205; 88112; 88305; 89051; 93005; 93306; 94640; 96360; 96361; 99285; G0378; J1644; J3475; J3480; J3490; J7613; J7620; J7644; J2060; J2270; J2920; J7030; J7040; J7510; S0028

== ENCOUNTER → 2018-08-07 | Outpatient (CLI) | payer OTHER ==
[~2018-08-07] MED LIST changes: +POTA20PA25 PO; +PRED15SO3 PO
== END | disposition home or self-care (01) ==
LOC: PETCFH 11:09
PROVIDERS: ATTEND Internal Medicine Hematology & Oncology
DX: J90 Pleural effusion, not elsewhere classified (principal); N20.0 Calculus of kidney; C15.4 Malignant neoplasm of middle third of esophagus
CPT/HCPCS: 78815; A9552

== ENCOUNTER 2018-08-22 09:38 | Inpatient (IN) | payer OTHER ==
[~2018-08-22] VITALS: Ht 162.6 cm; Wt 54.0 kg
[~2018-08-22 09:38] MED LIST changes: +ALBU1.25 NEB; +CIPR500T3 PO; +DOXE10CA PO; +LACT-90 JT; +METR500T8 PO; +morphine PO
[2018-08-22] MEDS ORDERED: BUPIVACAINE/PF 0.5% ONE (10:01)
[2018-08-22] MEDS ORDERED: EPINEPHRINE 1 MG/ML, 1ML ONE (10:01)
[2018-08-22] MEDS ORDERED: LACTATED RINGERS 1,000 ML IV SCH (10:05)
[2018-08-22 10:12] VITALS: BP 165/82
[2018-08-22] MEDS ORDERED: MIDAZOLAM 1 MG/ML, 2ML ONE (10:29)
[2018-08-22] MEDS ORDERED: FENTANYL PF 250 MCG/5ML ONE (10:29)
[2018-08-22] MEDS ORDERED: SUCCINYLCHOLINE 20 MG/ML, 10ML ONE (10:57)
[2018-08-22] MEDS ORDERED: DEXAMETHASONE 4 MG/ML, 1ML ONE (10:57)
[2018-08-22] MEDS ORDERED: ONDANSETRON 2MG/ML, 2ML ONE (10:57)
[2018-08-22] MEDS ORDERED: PROPOFOL 10 MG/ML, 20ML ONE (10:57)
[2018-08-22] MEDS ORDERED: ROCURONIUM 10 MG/ML,10ML ONE (10:57)
[2018-08-22] MEDS ORDERED: CEFAZOLIN 1,000 MG ONE (10:57)
[2018-08-22] MEDS ORDERED: PHENYLEPHRINE 10 MG/ML ONE (10:57)
[2018-08-22] MEDS ORDERED: DOXYCYCLINE 100 MG INTRAPL ONE (11:00)
[2018-08-22] MEDS ORDERED: DOXYCYCLINE 500 MG in SODIUM CHLORIDE 0.9% 60 ML INTRAPL ONE (11:00)
[2018-08-22] MEDS ORDERED: FENTANYL PF 100 MCG/2ML ONE (12:17)
[2018-08-22] MEDS: FENTANYL PF 100 MCG/2ML IV PRN ×2 (12:20→12:27)
[2018-08-22] MEDS ORDERED: ALBUTEROL/IPRATROPIUM 2.5MG/0.5MG, 3 ML ONE (12:22)
[2018-08-22] MEDS ORDERED: EPHEDRINE 50 MG/ML, 1ML IVPush PRN (12:30)
[2018-08-22] MEDS ORDERED: PROMETHAZINE 12.5 MG SUPP PR PRN (12:30)
[2018-08-22] MEDS ORDERED: LORazepam 2 MG/ML, 1ML IVPush PRN ×2 (12:30→15:30)
[2018-08-22] MEDS ORDERED: hydrALAzine 20 MG/ML, 1ML IV PRN (12:30)
[2018-08-22] MEDS ORDERED: PROMETHAZINE 25 MG/ML, 1ML IV PRN (12:30)
[2018-08-22] MEDS ORDERED: MORPHINE SULFATE 4 MG/ML, 1ML IVPush PRN (12:30)
[2018-08-22] MEDS ORDERED: ALBUTEROL SULFATE 2.5 MG/3 ML NPPB PRN (12:30)
[2018-08-22] MEDS ORDERED: ONDANSETRON 2MG/ML, 2ML IV PRN ×2 (12:30→16:00)
[2018-08-22] MEDS ORDERED: HALOPERIDOL 5 MG/ML IV PRN (12:30)
[2018-08-22] MEDS ORDERED: OXYcodone 5 MG/5 ML ORAL.SOL UDC PO PRN (12:30)
[2018-08-22] MEDS ORDERED: LABETALOL 5MG/ML, 20ML IV PRN (12:30)
[2018-08-22] MEDS ORDERED: ACETAMINOPHEN 325 MG TABLET PO PRN (12:30)
[2018-08-22] MEDS ORDERED: MEPERIDINE/PF 25MG/0.5ML IVPush PRN (12:30)
[2018-08-22] MEDS ORDERED: ONDANSETRON ODT 8 MG PO PRN (12:30)
[2018-08-22] MEDS ORDERED: MIDAZOLAM 1 MG/ML, 2ML IV PRN (12:30)
[2018-08-22] MEDS ORDERED: HYDROmorphone 2 MG/ML, 1ML ONE (12:50)
[2018-08-22] MEDS: HYDROmorphone 1 MG/ML, 1ML IV PRN ×3 (12:53→13:28)
[2018-08-22] MEDS ORDERED: ALBUTEROL/IPRATROPIUM 2.5MG/0.5MG, 3 ML NEB ONE (13:00)
[2018-08-22] MEDS ORDERED: LABETALOL 5MG/ML, 20ML ONE (13:25)
[2018-08-22] MEDS ORDERED: SODIUM CHLORIDE 0.9% 1,000 ML IV SCH (15:07)
[2018-08-22] MEDS ORDERED: BISACODYL 10 MG SUPP PR PRN (15:30)
[2018-08-22] MEDS ORDERED: morphine SULFATE 10 MG/ML, 1ML IVPush PRN (15:30)
[2018-08-22] MEDS ORDERED: LABETALOL 5MG/ML, 20ML IVPush PRN (15:30)
[2018-08-22] MEDS ORDERED: ENALAPRILAT 1.25 MG/ML, 2ML IVPush PRN (15:30)
[2018-08-22] MEDS ORDERED: POLYETHYLENE GLYCOL 17 GM PACKET PO PRN (15:30)
[2018-08-22] MEDS ORDERED: DOXEPIN 10 MG CAPSULE PO PRN (15:30)
[2018-08-22] MEDS ORDERED: ONDANSETRON ODT 4 MG PO PRN (15:30)
[2018-08-22] MEDS ORDERED: HYDROmorphone 2 MG/ML, 1ML IVPush PRN (15:30)
[2018-08-22] MEDS ORDERED: IBUPROFEN 600 MG TABLET PO PRN (15:30)
[2018-08-22] MEDS ORDERED: ONDANSETRON 2MG/ML, 2ML IVPush PRN (15:30)
[2018-08-22] MEDS: OXYcodone IR 5MG TABLET PO PRN ×3 (15:44→23:40)
[2018-08-22] MEDS ORDERED: LACTATED RINGERS 500 ML IV PRN (16:00)
[2018-08-22] MEDS ORDERED: POTASSIUM CHLORIDE 20 MEQ in D5%-0.45% NACL 1,000 ML IV SCH (16:00)
[2018-08-22 16:27] LABS: MEAN CORPUSCULAR HEMOGLOBIN 27.6 pg (27.0-34.8); MEAN CORPUSCULAR HGB CONC 32.8 g/dL (32.4-35.8); MEAN CORPUSCULAR VOLUME 84.2 fL (80-100); MEAN PLATELET VOLUME 7.5 fL (7.4-10.4); PLATELET COUNT 360 x10^3/uL (130-400)
[2018-08-22] MEDS ORDERED: ALBUTEROL/IPRATROPIUM 2.5MG/0.5MG, 3 ML NPPB PRN (16:30)
[2018-08-22 16:35] LABS: ANION GAP 7 mmol/L (5-15); CALCIUM 8.8 mg/dL (8.5-10.1); CHLORIDE 94 mmol/L (98-107); CREATININE 0.51 mg/dL (0.55-1.02)
[2018-08-22 17:00] LABS: BASOPHILS % (AUTO) 0 % (0-1); EOSINOPHILS % (AUTO) 0 % (1-7); LYMPHOCYTES # (AUTO) 0.38 x10^3/uL (1-3.4); LYMPHOCYTES % (AUTO) 3 % (22-44); MD SCAN; MONOCYTES % (AUTO) 1 % (2-9); NEUTROPHILS % (AUTO) 97 % (42-75)
[2018-08-22] MEDS: CEFAZOLIN PMX 1GM/50ML 50 ML IVPB SCH ×2 (17:24→23:39)
[2018-08-22] MEDS: ACETAMINOPHEN 650 MG/20.3 ML UDC PO SCH ×2 (17:28→21:30)
[2018-08-22] MEDS: ALBUTEROL/IPRATROPIUM 2.5MG/0.5MG, 3 ML NPPB SCH ×2 (19:55→22:33)
[2018-08-22] MEDS: SODIUM CHLORIDE FLUSH 10ML SYR IVF SCH (21:31)
[2018-08-23] MEDS: ALBUTEROL/IPRATROPIUM 2.5MG/0.5MG, 3 ML NPPB SCH ×5 (03:23→18:00)
[2018-08-23 04:00] VITALS: BP 130/57
[2018-08-23] MEDS: OXYcodone IR 5MG TABLET PO PRN ×5 (04:17→21:52)
[2018-08-23] MEDS: ACETAMINOPHEN 650 MG/20.3 ML UDC PO SCH ×4 (04:18→23:00)
[2018-08-23 04:58] LABS: BASOPHILS # (AUTO) 0.02 x10^3/uL (0-0.1); BASOPHILS % (AUTO) 0 % (0-1); EOSINOPHILS % (AUTO) 0 % (1-7); LYMPHOCYTES # (AUTO) 0.59 x10^3/uL (1-3.4); LYMPHOCYTES % (AUTO) 6 % (22-44); MD NO; MEAN CORPUSCULAR HEMOGLOBIN 27.9 pg (27.0-34.8); MEAN CORPUSCULAR VOLUME 84.4 fL (80-100); MEAN PLATELET VOLUME 7.7 fL (7.4-10.4); MONOCYTES # (AUTO) 0.74 x10^3/uL (0.2-0.8); MONOCYTES % (AUTO) 8 % (2-9); NEUTROPHILS % (AUTO) 86 % (42-75); PLATELET COUNT 308 x10^3/uL (130-400); RED BLOOD COUNT 3.46 x10^6/uL (3.82-5.3); RED CELL DISTRIBUTION WIDTH 16.1 % (9.6-15.2)
[2018-08-23 04:59] LABS: ANION GAP 8 mmol/L (5-15); CALCIUM 8.1 mg/dL (8.5-10.1); CHLORIDE 93 mmol/L (98-107); CREATININE 0.45 mg/dL (0.55-1.02)
[2018-08-23 05:00] LABS: ALANINE AMINOTRANSFERASE 26 U/L (12-78); ALBUMIN 2.5 g/dL (3.4-5.0)
[2018-08-23 05:02] LABS: ALKALINE PHOSPHATASE 56 U/L (45-117); BILIRUBIN,TOTAL 0.2 mg/dL (0.2-1.0); TOTAL PROTEIN 6.9 g/dL (6.4-8.2)
[2018-08-23] MEDS: HEPARIN 5,000 UNITS/ML, 1ML SQ SCH ×2 (08:16→17:07)
[2018-08-23] MEDS: SODIUM CHLORIDE 0.9% 1,000 ML IV SCH ×2 (08:16→22:11)
[2018-08-23] MEDS: SENNA/DOCUSATE TABLET PO SCH (09:00)
[2018-08-23] MEDS: SODIUM CHLORIDE FLUSH 10ML SYR IVF SCH ×2 (09:00→21:00)
[2018-08-23 10:11] VITALS: BP 114/50
[2018-08-23] MEDS: TEMPLATE NON-FORMULARY MED. (Umeclidinium Brm/Vilanterol Tr (Anoro Ellipta 62.5-25 Mcg Inh INH SCH (10:55)
[2018-08-23 14:06] VITALS: BP 125/66
[2018-08-23 18:30] VITALS: BP 112/61
[2018-08-24] MEDS: OXYcodone IR 5MG TABLET PO PRN ×5 (01:53→20:53)
[2018-08-24] MEDS: HEPARIN 5,000 UNITS/ML, 1ML SQ SCH ×3 (01:54→17:18)
[2018-08-24 03:52] VITALS: BP 117/77
[2018-08-24] MEDS: ACETAMINOPHEN 650 MG/20.3 ML UDC PO SCH ×3 (05:00→17:18)
[2018-08-24 06:36] VITALS: BP 157/73
[2018-08-24] MEDS: ALBUTEROL/IPRATROPIUM 2.5MG/0.5MG, 3 ML NPPB SCH ×5 (07:05→20:15)
[2018-08-24] MEDS: SODIUM CHLORIDE FLUSH 10ML SYR IVF SCH ×2 (09:00→21:00)
[2018-08-24] MEDS: TEMPLATE NON-FORMULARY MED. (Umeclidinium Brm/Vilanterol Tr (Anoro Ellipta 62.5-25 Mcg Inh INH SCH (09:24)
[2018-08-24] MEDS: SODIUM CHLORIDE 0.9% 1,000 ML IV SCH (09:25)
[2018-08-24] MEDS: SENNA/DOCUSATE TABLET PO SCH (09:25)
[2018-08-24 12:45] VITALS: BP 122/67
[2018-08-24 20:02] VITALS: BP 160/72
[2018-08-25] MEDS: HEPARIN 5,000 UNITS/ML, 1ML SQ SCH ×3 (00:27→18:09)
[2018-08-25] MEDS: ACETAMINOPHEN 650 MG/20.3 ML UDC PO SCH ×2 (00:27→06:05)
[2018-08-25] MEDS: SODIUM CHLORIDE 0.9% 1,000 ML IV SCH (00:32)
[2018-08-25 00:40] VITALS: BP 160/76
[2018-08-25] MEDS: OXYcodone IR 5MG TABLET PO PRN (02:29)
[2018-08-25 04:45] VITALS: BP 159/76
[2018-08-25 06:02] LABS: BASOPHILS # (AUTO) 0.03 x10^3/uL (0-0.1); BASOPHILS % (AUTO) 0 % (0-1); EOSINOPHILS # (AUTO) 0.08 x10^3/uL (0-0.4); EOSINOPHILS % (AUTO) 1 % (1-7); LYMPHOCYTES # (AUTO) 0.74 x10^3/uL (1-3.4); LYMPHOCYTES % (AUTO) 9 % (22-44); MD NO; MEAN CORPUSCULAR HEMOGLOBIN 28.5 pg (27.0-34.8); MEAN CORPUSCULAR HGB CONC 33.6 g/dL (32.4-35.8); MEAN CORPUSCULAR VOLUME 84.7 fL (80-100); MEAN PLATELET VOLUME 7.6 fL (7.4-10.4); MONOCYTES # (AUTO) 1.25 x10^3/uL (0.2-0.8); MONOCYTES % (AUTO) 15 % (2-9); NEUTROPHILS # (AUTO) 6.25 x10^3/uL (1.8-6.8); NEUTROPHILS % (AUTO) 75 % (42-75); PLATELET COUNT 305 x10^3/uL (130-400); RED BLOOD COUNT 3.32 x10^6/uL (3.82-5.3); RED CELL DISTRIBUTION WIDTH 16.6 % (9.6-15.2)
[2018-08-25 06:11] LABS: ANION GAP 7 mmol/L (5-15); CALCIUM 8.2 mg/dL (8.5-10.1); CHLORIDE 95 mmol/L (98-107); CREATININE 0.34 mg/dL (0.55-1.02)
[2018-08-25] MEDS: ALBUTEROL/IPRATROPIUM 2.5MG/0.5MG, 3 ML NPPB SCH ×4 (07:00→19:45)
[2018-08-25 07:58] VITALS: BP 152/71
[2018-08-25] MEDS: OXYcodone 5 MG/5 ML ORAL.SOL UDC JT PRN ×2 (08:34→15:10)
[2018-08-25] MEDS: SODIUM CHLORIDE FLUSH 10ML SYR IVF SCH ×2 (08:34→21:17)
[2018-08-25] MEDS: SENNA/DOCUSATE TABLET PO SCH (08:35)
[2018-08-25] MEDS: TEMPLATE NON-FORMULARY MED. (Umeclidinium Brm/Vilanterol Tr (Anoro Ellipta 62.5-25 Mcg Inh INH SCH (09:33)
[2018-08-25] MEDS: IBUPROFEN 100 MG/5 ML UDC JT SCH ×3 (09:33→21:17)
[2018-08-25] MEDS: ACETAMINOPHEN 650 MG/20.3 ML UDC JT SCH ×2 (12:11→18:09)
[2018-08-26] VITALS (7 sets, daily range): BP systolic 118–196; BP diastolic 70–89
[2018-08-26] MEDS: HEPARIN 5,000 UNITS/ML, 1ML SQ SCH ×3 (03:08→16:55)
[2018-08-26] MEDS: ACETAMINOPHEN 650 MG/20.3 ML UDC JT SCH ×5 (05:48→23:44)
[2018-08-26] MEDS: ALBUTEROL/IPRATROPIUM 2.5MG/0.5MG, 3 ML NPPB SCH ×4 (06:35→19:00)
[2018-08-26] MEDS: SENNA/DOCUSATE TABLET PO SCH (09:00)
[2018-08-26] MEDS: TEMPLATE NON-FORMULARY MED. (Umeclidinium Brm/Vilanterol Tr (Anoro Ellipta 62.5-25 Mcg Inh INH SCH (09:00)
[2018-08-26] MEDS: IBUPROFEN 100 MG/5 ML UDC JT SCH ×3 (09:53→23:44)
[2018-08-26] MEDS: SODIUM CHLORIDE FLUSH 10ML SYR IVF SCH ×2 (09:54→19:42)
[2018-08-26] MEDS: SODIUM CHLORIDE 0.9% 1,000 ML IV SCH (10:16)
[2018-08-26] MEDS: OXYcodone 5 MG/5 ML ORAL.SOL UDC JT PRN ×2 (10:17→17:04)
[2018-08-26 11:34] LABS: MEAN CORPUSCULAR HEMOGLOBIN 27.8 pg (27.0-34.8); MEAN CORPUSCULAR HGB CONC 32.9 g/dL (32.4-35.8); MEAN CORPUSCULAR VOLUME 84.4 fL (80-100); MEAN PLATELET VOLUME 8.1 fL (7.4-10.4); PLATELET COUNT 310 x10^3/uL (130-400); RED BLOOD COUNT 3.75 x10^6/uL (3.82-5.3); RED CELL DISTRIBUTION WIDTH 16.5 % (9.6-15.2)
[2018-08-26 12:21] LABS: BASOPHILS # (AUTO) 0.04 x10^3/uL (0-0.1); BASOPHILS % (AUTO) 0 % (0-1); EOSINOPHILS % (AUTO) 0 % (1-7); LYMPHOCYTES # (AUTO) 0.62 x10^3/uL (1-3.4); LYMPHOCYTES % (AUTO) 4 % (22-44); MD SCAN; MONOCYTES # (AUTO) 0.56 x10^3/uL (0.2-0.8); MONOCYTES % (AUTO) 4 % (2-9); NEUTROPHILS # (AUTO) 12.84 x10^3/uL (1.8-6.8); NEUTROPHILS % (AUTO) 91 % (42-75)
[2018-08-26 13:25] LABS: ANION GAP 10 mmol/L (5-15); CALCIUM 8.5 mg/dL (8.5-10.1); CHLORIDE 97 mmol/L (98-107)
[2018-08-26 13:26] LABS: CREATININE 0.38 mg/dL (0.55-1.02)
[2018-08-26] MEDS ORDERED: METOPROLOL TARTRATE 50 MG TABLET ONE (14:56)
[2018-08-26] MEDS: DILTIAZEM 125 MG in SODIUM CHLORIDE 0.9% 100 ML IV SCH (16:11)
[2018-08-26] MEDS ORDERED: DILTIAZEM 5 MG/ML, 5ML IVPush ONE (16:30)
[2018-08-26] MEDS: METOPROLOL TARTRATE 50 MG TABLET PO SCH (16:55)
[2018-08-26 18:21] LABS: TROPONIN I 0.024 ng/mL (0.000-0.045)
[2018-08-26] MEDS ORDERED: ONDANSETRON 2MG/ML, 2ML IVPush PRN (19:30)
[2018-08-26] MEDS: GUAIFENESIN ER 600 MG TABLET PO SCH (19:42)
[2018-08-26] MEDS ORDERED: VANCOMYCIN PER PHARMACY MC PRN (22:30)
[2018-08-26] MEDS ORDERED: PHARMACOKINETIC MONITORING MC PRN (23:00)
[2018-08-26] MEDS ORDERED: PHARMACOKINETIC CONSULTATION MC ONE (23:00)
[2018-08-26 23:28] LABS: TROPONIN I < 0.015 ng/mL (0.000-0.045)
[2018-08-26] MEDS: LORazepam 2 MG/ML, 1ML IVPush PRN (23:44)
[2018-08-27] MEDS: VANCOMYCIN PMX 1GM/200ML 200 ML IV SCH ×2 (00:03→23:38)
[2018-08-27] MEDS: PIPERACILLIN/TAZO/PMX 4.5GM 100 ML IV SCH ×4 (01:17→17:55)
[2018-08-27] MEDS: HEPARIN 5,000 UNITS/ML, 1ML SQ SCH ×3 (01:34→17:55)
[2018-08-27] MEDS: OXYcodone 5 MG/5 ML ORAL.SOL UDC JT PRN ×3 (02:12→15:47)
[2018-08-27] MEDS: DILTIAZEM 125 MG in SODIUM CHLORIDE 0.9% 100 ML IV SCH ×2 (02:41→15:42)
[2018-08-27 03:31] LABS: ALANINE AMINOTRANSFERASE 28 U/L (12-78); ALBUMIN 2.5 g/dL (3.4-5.0); ANION GAP 10 mmol/L (5-15); CALCIUM 7.9 mg/dL (8.5-10.1); CHLORIDE 99 mmol/L (98-107)
[2018-08-27 03:36] LABS: ALKALINE PHOSPHATASE 52 U/L (45-117); BILIRUBIN,TOTAL 0.3 mg/dL (0.2-1.0); TOTAL PROTEIN 6.8 g/dL (6.4-8.2); TROPONIN I < 0.015 ng/mL (0.000-0.045)
[2018-08-27 03:39] LABS: CREATININE 0.51 mg/dL (0.55-1.02)
[2018-08-27 05:03] LABS: MEAN CORPUSCULAR HEMOGLOBIN 27.7 pg (27.0-34.8); MEAN CORPUSCULAR HGB CONC 32.7 g/dL (32.4-35.8); MEAN CORPUSCULAR VOLUME 84.6 fL (80-100); MEAN PLATELET VOLUME 7.6 fL (7.4-10.4); PLATELET COUNT 291 x10^3/uL (130-400); RED BLOOD COUNT 3.58 x10^6/uL (3.82-5.3); RED CELL DISTRIBUTION WIDTH 16.2 % (9.6-15.2)
[2018-08-27 05:40] LABS: MD YES
[2018-08-27 05:41] LABS: BAND#(MANUAL) 0.35 x10^3/uL; BANDS%(MANUAL) 1 % (0-7); LYMPHS% (MANUAL) 2 % (22-44)
[2018-08-27 05:42] LABS: MONOS#(MANUAL) 1.05 x10^3/uL (0.3-2.7); MONOS% (MANUAL) 3 % (2-9); SEG#(MANUAL) 32.99 x10^3/uL (1.8-6.8); SEGS% (MANUAL) 94 % (42-75)
[2018-08-27 05:43] LABS: <PLATELET ESTIMATE> ADEQUATE; <PLT MORPHOLOGY> NORMAL PLT MORPH; ANISOCYTOSIS 1+
[2018-08-27] MEDS: ACETAMINOPHEN 650 MG/20.3 ML UDC JT SCH ×4 (06:14→23:37)
[2018-08-27] MEDS: METOPROLOL TARTRATE 50 MG TABLET PO SCH ×2 (06:14→17:55)
[2018-08-27] MEDS: ALBUTEROL/IPRATROPIUM 2.5MG/0.5MG, 3 ML NPPB SCH ×4 (07:00→19:06)
[2018-08-27] MEDS: SODIUM CHLORIDE 0.9% 1,000 ML IV SCH (08:03)
[2018-08-27] MEDS: SODIUM CHLORIDE FLUSH 10ML SYR IVF SCH ×2 (08:04→21:00)
[2018-08-27] MEDS: IBUPROFEN 100 MG/5 ML UDC JT SCH ×3 (08:05→22:00)
[2018-08-27] MEDS: GUAIFENESIN ER 600 MG TABLET PO SCH ×3 (08:05→21:00)
[2018-08-27] MEDS: SENNA/DOCUSATE TABLET PO SCH (08:05)
[2018-08-27] MEDS: TEMPLATE NON-FORMULARY MED. (Umeclidinium Brm/Vilanterol Tr (Anoro Ellipta 62.5-25 Mcg Inh INH SCH (09:00)
[2018-08-27] MEDS: LORazepam 2 MG/ML, 1ML IVPush PRN ×2 (13:39→18:05)
[2018-08-27] MEDS ORDERED: OXYcodone 5 MG/5 ML ORAL.SOL UDC JT PRN (22:00)
[2018-08-28] MEDS: LORazepam 2 MG/ML, 1ML IVPush PRN ×2 (01:47→06:07)
[2018-08-28] MEDS: PIPERACILLIN/TAZO/PMX 4.5GM 100 ML IV SCH ×2 (01:47→06:07)
[2018-08-28] MEDS: HEPARIN 5,000 UNITS/ML, 1ML SQ SCH ×2 (01:48→10:00)
[2018-08-28] MEDS: MORPHINE SULFATE 4 MG/ML, 1ML IVPush PRN ×3 (02:53→10:15)
[2018-08-28 04:30] LABS: MEAN CORPUSCULAR HEMOGLOBIN 28.2 pg (27.0-34.8); MEAN CORPUSCULAR HGB CONC 32.4 g/dL (32.4-35.8); MEAN PLATELET VOLUME 7.8 fL (7.4-10.4); PLATELET COUNT 280 x10^3/uL (130-400); RED BLOOD COUNT 3.49 x10^6/uL (3.82-5.3); RED CELL DISTRIBUTION WIDTH 16.7 % (9.6-15.2)
[2018-08-28] MEDS: DILTIAZEM 125 MG in SODIUM CHLORIDE 0.9% 100 ML IV SCH (04:42)
[2018-08-28 04:43] LABS: ALBUMIN 2.2 g/dL (3.4-5.0); ANION GAP 5 mmol/L (5-15); CALCIUM 8.1 mg/dL (8.5-10.1); CHLORIDE 103 mmol/L (98-107)
[2018-08-28 04:46] LABS: ALANINE AMINOTRANSFERASE 27 U/L (12-78); ALKALINE PHOSPHATASE 45 U/L (45-117); BILIRUBIN,TOTAL 0.1 mg/dL (0.2-1.0); CREATININE 0.49 mg/dL (0.55-1.02); TOTAL PROTEIN 6.9 g/dL (6.4-8.2)
[2018-08-28 04:53] LABS: BASOPHILS # (AUTO) 0.01 x10^3/uL (0-0.1); BASOPHILS % (AUTO) 0 % (0-1); EOSINOPHILS % (AUTO) 0 % (1-7); LYMPHOCYTES # (AUTO) 0.34 x10^3/uL (1-3.4); LYMPHOCYTES % (AUTO) 1 % (22-44); MD SCAN; MONOCYTES # (AUTO) 1.58 x10^3/uL (0.2-0.8); MONOCYTES % (AUTO) 7 % (2-9); NEUTROPHILS # (AUTO) 22.56 x10^3/uL (1.8-6.8); NEUTROPHILS % (AUTO) 92 % (42-75)
[2018-08-28] MEDS: ACETAMINOPHEN 650 MG/20.3 ML UDC JT SCH (06:06)
[2018-08-28] MEDS: METOPROLOL TARTRATE 50 MG TABLET PO SCH (06:07)
[2018-08-28] MEDS: ALBUTEROL/IPRATROPIUM 2.5MG/0.5MG, 3 ML NPPB SCH ×2 (07:00→11:00)
[2018-08-28] MEDS: IBUPROFEN 100 MG/5 ML UDC JT SCH (09:00)
[2018-08-28] MEDS: GUAIFENESIN ER 600 MG TABLET PO SCH (09:00)
[2018-08-28] MEDS: TEMPLATE NON-FORMULARY MED. (Umeclidinium Brm/Vilanterol Tr (Anoro Ellipta 62.5-25 Mcg Inh INH SCH (09:00)
[2018-08-28] MEDS: SENNA/DOCUSATE TABLET PO SCH (09:00)
[2018-08-28] MEDS: SODIUM CHLORIDE FLUSH 10ML SYR IVF SCH (09:00)
== END 2018-08-28 12:03 | disposition hospice, home (50) | DRG 853 ==
LOC: ORIP 09:38 → EDSTATUS 11:30 → CCU 14:02 → 4NOR 08-23 09:59 → 5SO 08-26 15:55 → ICU 08-26 21:38 → CCU 08-27 18:41
PROVIDERS: ADMIT Surgery; ATTEND Surgery
PROC: 0BBP4ZX Excision of Left Pleura, Percutaneous Endoscopic Approach, Diagnostic (ICD-10-PCS; 2018-08-22)
PROC: 3E0L4GC Introduction of Other Therapeutic Substance into Pleural Cavity, Percutaneous Endoscopic Approach (ICD-10-PCS; 2018-08-22)
PROC: 0W9B4ZX Drainage of Left Pleural Cavity, Percutaneous Endoscopic Approach, Diagnostic (ICD-10-PCS; principal; 2018-08-22 11:30)
PROC: 5A09357 Assistance with Respiratory Ventilation, Less than 24 Consecutive Hours, Continuous Positive Airway Pressure (ICD-10-PCS; 2018-08-26)
PROC: 5A09357 Assistance with Respiratory Ventilation, Less than 24 Consecutive Hours, Continuous Positive Airway Pressure (ICD-10-PCS; 2018-08-27)
PROC: 5A09357 Assistance with Respiratory Ventilation, Less than 24 Consecutive Hours, Continuous Positive Airway Pressure (ICD-10-PCS; 2018-08-28)
DX: A41.9 Sepsis, unspecified organism (principal); E43 Unspecified severe protein-calorie malnutrition; J18.9 Pneumonia, unspecified organism; J96.21 Acute and chronic respiratory failure with hypoxia; G93.41 Metabolic encephalopathy; J90 Pleural effusion, not elsewhere classified; F11.20 Opioid dependence, uncomplicated; J44.0 Chronic obstructive pulmonary disease with (acute) lower respiratory infection; C15.4 Malignant neoplasm of middle third of esophagus; J94.8 Other specified pleural conditions; G89.29 Other chronic pain; I10 Essential (primary) hypertension; I48.91 Unspecified atrial fibrillation; R13.10 Dysphagia, unspecified; Z51.5 Encounter for palliative care; Z66 Do not resuscitate; Z82.5 Family history of asthma and other chronic lower respiratory diseases; Z85.01 Personal history of malignant neoplasm of esophagus; Z92.21 Personal history of antineoplastic chemotherapy; Z92.3 Personal history of irradiation; Z93.1 Gastrostomy status; Z93.4 Other artificial openings of gastrointestinal tract status; Z99.81 Dependence on supplemental oxygen; Z68.20 Body mass index [BMI] 20.0-20.9, adult
CPT/HCPCS: 36415; 36600; 71045; 80048; 80053; 82803; 82805; 82962; 83735; 84100; 84484; 84520; 85025; 86850; 86900; 87015; 87040; 87070; 87075; 87077; 87081; 87102; 87116; 87186; 87205; 87206; 88112; 88305; 93005; 93306; 94640; 94660; C1729; G0378; J0171; J0690; J1100; J1170; J1644; J2250; J2270; J2405; J2543; J2704; J3010; J3370; J3480; J3490; J7620; Q0162; J0330; J2060; J2370; J7030; J7120

== ENCOUNTER 2018-08-28 12:08 | Inpatient (IN) | payer OTHER ==
[~2018-08-28] VITALS: Ht 162.6 cm; Wt 54.0 kg
[2018-08-28] MEDS ORDERED: SODIUM CHLORIDE 0.9% 1,000 ML IV SCH (13:21)
[2018-08-28] MEDS ORDERED: LORazepam 2 MG/ML, 1ML IVPush PRN (13:30)
[2018-08-28] MEDS ORDERED: ONDANSETRON 2MG/ML, 2ML IVPush PRN (13:30)
[2018-08-28] MEDS ORDERED: ATROPINE OPHTH SOLN 1%, 5ML BC PRN (13:30)
[2018-08-28] MEDS ORDERED: SCOPOLAMINE PATCH, 1.5MG PATCH.TD72 TD SCH (13:30)
[2018-08-28] MEDS ORDERED: MORPHINE SULFATE 4 MG/ML, 1ML IVPush PRN ×3 (13:30)
[2018-08-28] MEDS ORDERED: PLEASE ENTER HEIGHT AND WEIGHT MC SCH (14:00)
== END 2018-08-28 23:03 | disposition expired | DRG 871 ==
LOC: 3NW 12:08
PROVIDERS: ADMIT Internal Medicine; ATTEND Internal Medicine
PROC: 5A09357 Assistance with Respiratory Ventilation, Less than 24 Consecutive Hours, Continuous Positive Airway Pressure (ICD-10-PCS; principal; 2018-08-28)
DX: A41.9 Sepsis, unspecified organism (principal); G93.41 Metabolic encephalopathy; J18.9 Pneumonia, unspecified organism; J96.21 Acute and chronic respiratory failure with hypoxia; C15.9 Malignant neoplasm of esophagus, unspecified; J44.0 Chronic obstructive pulmonary disease with (acute) lower respiratory infection; D63.8 Anemia in other chronic diseases classified elsewhere; E88.09 Other disorders of plasma-protein metabolism, not elsewhere classified; F41.9 Anxiety disorder, unspecified; I10 Essential (primary) hypertension; I48.91 Unspecified atrial fibrillation; R13.10 Dysphagia, unspecified; Z66 Do not resuscitate; Z82.5 Family history of asthma and other chronic lower respiratory diseases; Z92.21 Personal history of antineoplastic chemotherapy; Z93.4 Other artificial openings of gastrointestinal tract status; Z99.81 Dependence on supplemental oxygen; R73.9 Hyperglycemia, unspecified
CPT/HCPCS: G0378; J2060